=== PATIENT | female | born 1980 | race Caucasian/White ===

== ENCOUNTER 2017-08-22 07:28 | Inpatient (IN) | payer OTHER ==
[2017-08-22 07:54] VITALS: BMI 29.8
[2017-08-22] MEDS ORDERED: LIDOCAINE VISCOUS 2% ORAL/TOP 20 ML UNIT-DOSE CUP MM ONE (08:15)
[2017-08-22] MEDS ORDERED: SODIUM CHLORIDE 1,000 ML IV STA (08:15)
[2017-08-22] MEDS ORDERED: ONDANSETRON 4 MG/2 ML VIAL IVPUSH ONE (08:15)
[2017-08-22] MEDS ORDERED: MAG HYDROX/AL HYDROX/SIMETH 30 ML UNIT-DOSE CUP PO ONE (08:15)
--- NOTE | 2017-08-22 08:15 | PDOC ---
History of Present Illness - General Chief Complaint: Pain, Acute Stated Complaint: ABDOMINAL PAIN Time Seen by Provider: 08/22/17 08:06 - History of Present Illness Initial Comments: 08/22/17 08:20 The patient is a 37 year old female with a history of anemia who presents for evaluation of epigastric abdominal pain. The patient reports the onset of burning epigastric abdominal pain yesterday evening after eating spicy food. She states that she had an episode of vomiting during the night prompting her presentation to the ED today. She states that she has not had similar symptoms in the past and that her pain has improved through out the night. She denies fevers, chills, SOB, chest pain, or changes with urination or bowel movements. Past History - Past Medical History Allergies/Adverse Reactions: Allergies Allergy/AdvReac Type Severity Reaction Status Date / Time No Known Allergies Allergy Verified 08/22/17 07:51 Home Medications: Ambulatory Orders NK [No Known Home Medication] 08/22/17 Anemia: Yes Asthma: No Cancer: No Cardiac Disorders: No COPD: No Diabetes: No HTN: No Seizures: No Thyroid Disease: No - Suicide/Smoking/Psychosocial Hx Smoking History: Never smoked Have you smoked in the past 12 months: No Hx Alcohol Use: No Drug/Substance Use Hx: No Hx Substance Use Treatment: No Review of Systems - Review of Systems Comments:: 08/22/17 08:25 Constitutional: No fevers, chills, fatigue, malaise HEENT: No Rhinorrhea, nasal congestion, visual changes Cardiovascular: No chest pain, syncope, palpitations, lightheadedness Respiratory: No Cough, SOB, Hemoptysis, Gastrointestinal: Nausea, vomiting, epigastric abdominal pain. No Constipation , Diarrhea, Melena Genitourinary: No Dysuria, Frequency, Urgency, Hesitancy, Hematuria, Flank pain Musculoskeletal: No Myalgia, arthralgia Skin: No rashes, itching, bruising, pallor Neurologic: No Headache, Dizziness, Numbness, Weakness, or Tingling Psychiatric: No Hallucinations. No SI or HI *Physical Exam - Vital Signs Last Vital Signs Temp Pulse Resp BP Pulse Ox 98.5 F 110 H 20 127/74 99 08/22/17 07:51 08/22/17 07:51 08/22/17 07:51 08/22/17 07:51 08/22/17 07:51 - Physical Exam Comments: 08/22/17 08:29 General Appearance: Nourished. No Apparent Distress HEENT: EOMI, RANCHO. No Pharyngeal Erythema, Tonsillar Exudate, Tonsillar Erythema Neck: No Cervical Lymphadenopathy Respiratory/Chest: Lungs Clear, Normal Breath Sounds. No Crackles, Rales, Rhonchi, Wheezing Cardiovascular: Regular Rhythm, Regular Rate. No Murmur, Gallops, Rubs Gastrointestinal/Abdominal: Normal Bowel Sounds, Soft. Mild tenderness to palpation with deep palpation in the epigastrium. No Guarding, Rebound, Musculoskeletal: No CVA Tenderness Extremity: Normal Capillary Refill Integumentary: Normal Color, Dry, Warm Neurologic: Fully Oriented, Alert, Normal Mood/Affect, Normal Response, Heart Score/ECG Review #1 ECG reviewed & interpreted by me at: 09:04 (RR' in V2) General ECG Interpretation: Sinus Rhythm, Normal Rate, Normal Intervals, No acute ischemic changes ED Treatment Course - LABORATORY CBC & Chemistry Diagram: 08/22/17 08:39 08/22/17 08:39 Medical Decision Making - Medical Decision Making 08/22/17 08:31 The patient is a 37 year old female with a history of anemia who presents for evaluation of epigastric abdominal pain. Differential includes but is not limited to: Gastritis, GERD, Pancreatitis, Cholecystitis, ACS, infectious, metabolic derangement. Given the patient's symptoms worse after spicy food and history, it is likely her symptoms are due to a gastritis. However we will obtain a cbc, cmp, troponin, lipase, ekg and gallbladder US to evaluate for other etiologies. We will treat with iv fluids, pepcid, zofran, maalox, and viscous lidocaine. We will continue to monitor and reassess. 08/22/17 10:14 CBC demonstrates a wbc elevation to 18.2. cmp is unremarkable. troponin, lipase are unremarkable. Gallbladder US demonstrates concerns for possible earlier acute cholecystitis as well as signs of gallstones as read by our radiologist. The patient will require admission for further management of her symptoms and will be treated with zosyn here in the ED. We discussed the case with Dr. Claudio with surgery who has been made aware of the case. We discussed the results and the plan with the patient who voiced understanding and is agreeable with the plan. 08/22/17 10:33 We discussed the case with the hospitalist team who accepted the patient for admission. 08/22/17 10:40 Dr. Claudio with surgery will admit the patient primarily. We have informed the hospitalist team. *DC/Admit/Observation/Transfer Diagnosis at time of Disposition: Cholecystitis - Discharge Dispostion Condition at time of disposition: Stable Admit: Yes - Referrals - Patient Instructions - Post Discharge Activity
[2017-08-22] MEDS ORDERED: LIDOCAINE VISCOUS 2% ORAL/TOP 20 ML UNIT-DOSE CUP ONE (08:35)
[2017-08-22] MEDS ORDERED: MAG HYDROX/AL HYDROX/SIMETH 30 ML UNIT-DOSE CUP ONE (08:35)
[2017-08-22] MEDS ORDERED: ONDANSETRON 4 MG/2 ML VIAL ONE (08:36)
[2017-08-22 09:02] LABS: BASO % 0.4 % (0-2.0); EOS % 0.1 % (0-4.5); HEMATOCRIT 42.6 % (32.4-45.2); HEMOGLOBIN 13.3 GM/dL (10.7-15.3); LYMPH % 5.2 % (8-40); MCH 22.4 pg (25.7-33.7); MCHC 31.3 g/dl (32.0-36.0); MEAN CELL VOLUME 71.4 fl (80-96); MEAN PLT VOLUME 8.8 fl (7.5-11.1); MONO % 3.3 % (3.8-10.2); PLATELET COUNT 272 K/MM3 (134-434); RBC 5.97 M/mm3 (3.60-5.2); RDW 21.3 % (11.6-15.6); WHITE BLOOD COUNT 18.2 K/mm3 (4.0-10.0)
[2017-08-22 09:11] LABS: ADD RBC MORPHOLOGY YES
--- NOTE | 2017-08-22 09:29 | PDOC ---
Attending Attestation - Resident Resident Name: MichelleBasilioShayan - ED Attending Attestation I have performed the following: I have examined & evaluated the patient, The case was reviewed & discussed with the resident, I agree w/resident's findings & plan, Exceptions are as noted - HPI HPI: 08/22/17 09:31 37 year old F pmh anemia p/w epigastric pain since yesterday evening. Stated that the pain worse after eating spicy food. Denies chest pain or shortness of breath. Burning in nature. Denies radiation. 1 episode of NBNB emesis. Denies fevers, chills. - Physicial Exam PE: 08/22/17 09:32 GENERAL: Awake, alert, and fully oriented, in no acute distress. HEAD: No signs of trauma EYES: PERRLA, EOMI, sclera anicteric, conjunctiva clear ENT: Auricles normal inspection, hearing grossly normal, nares patent NECK: Normal ROM, supple ABDOMEN: Mildly TTP RUQ, epigastric, LUQ. Soft. No guarding, no rebound. No masses EXTREMITIES: Normal range of motion, no edema. No clubbing or cyanosis. No cords, erythema, or tenderness NEUROLOGICAL: Cranial nerves II through XII grossly intact. Normal speech, normal gait SKIN: Warm, Dry, normal turgor, no rashes or lesions noted. - Medical Decision Making 08/22/17 09:32 Vital Signs Temp Pulse Resp BP Pulse Ox 98.5 F 110 H 20 127/74 100 08/22/17 07:51 08/22/17 07:51 08/22/17 07:51 08/22/17 07:51 08/22/17 08:10 I suspect the patient likely has GERD/gastritis. However, given age, F, and with mild RUQ pain, will rule out biliary pathology i.e. acute juan f/biliary colic. Labs, UA/Urine preg, RUQ ultrasound. GERD medications. 08/22/17 10:16 CBC, BMP 08/22/17 08:39 08/22/17 08:39 CMP Sodium 135 mmol/L (136-145) L 08/22/17 08:39 Potassium 4.2 mmol/L (3.5-5.1) 08/22/17 08:39 Chloride 98 mmol/L (98-107) 08/22/17 08:39 Carbon Dioxide 25 mmol/L (21-32) 08/22/17 08:39 Anion Gap 12 (8-16) 08/22/17 08:39 BUN 9 mg/dL (7-18) 08/22/17 08:39 Creatinine 0.6 mg/dL (0.55-1.02) 08/22/17 08:39 Creat Clearance w eGFR > 60 (>60) 08/22/17 08:39 Random Glucose 127 mg/dL (74-106) H 08/22/17 08:39 Calcium 9.0 mg/dL (8.5-10.1) 08/22/17 08:39 Total Bilirubin 0.3 mg/dL (0.2-1.0) 08/22/17 08:39 AST 24 U/L (15-37) 08/22/17 08:39 ALT 31 U/L (12-78) 08/22/17 08:39 Alkaline Phosphatase 78 U/L (45-117) 08/22/17 08:39 Creatine Kinase 85 IU/L (26-192) 08/22/17 08:39 Troponin I < 0.02 ng/ml (0.00-0.05) 08/22/17 08:39 Total Protein 8.5 g/dl (6.4-8.2) H 08/22/17 08:39 Albumin 4.0 g/dl (3.4-5.0) 08/22/17 08:39 Lipase 122 U/L (73-393) 08/22/17 08:39 Over distended gallbladder. ?acute cholecystitis? Given the WBC 18.2 with ultrasound findings, will treat empirically as acute cholecystitis. IV antibiotics, surgical consult, and admission. Heart Score/ECG Review #1 ECG reviewed & interpreted by me at: 09:00 08/22/17 09:35 NSR 92, no std/matheus, TWI III, RSR' V2, no std/matheus, QTC 464 msec
[2017-08-22 09:32] LABS: ANION GAP 12 (8-16); BILIRUBIN,TOTAL 0.3 mg/dL (0.2-1.0); BLOOD UREA NITROGEN 9 mg/dL (7-18); CHLORIDE 98 mmol/L (98-107); CO2 25 mmol/L (21-32); CREATININE 0.6 mg/dL (0.55-1.02); GLUCOSE,RANDOM 127 mg/dL (74-106); LIPASE 122 U/L (73-393); POTASSIUM 4.2 mmol/L (3.5-5.1); SGOT/AST 24 U/L (15-37); SGPT/ALT 31 U/L (12-78); SODIUM 135 mmol/L (136-145); TOT PROT 8.5 g/dl (6.4-8.2)
[2017-08-22 09:35] LABS: ALK PHOS 78 U/L (45-117)
[2017-08-22] MEDS ORDERED: FAMOTIDINE 20 MG/50 ML IVPB 20 MG/50 ML MG IVPB ONE ×2 (10:00→11:31)
[2017-08-22] MEDS ORDERED: PIPERACILLIN/TAZOB 3.375 GM 50 ML IVPB ONE (10:10)
--- NOTE | 2017-08-22 10:22 | CONSULT ---
Consult Consult Specialty:: general surgery Reason for Consultation:: abdominal pain - History of Present Illness Chief Complaint: abdominal pain History of Present Illness: 37 yo female PMH iron deficiency anemia, overweight presents to the emergency department reporting epigastric pain since yesterday evening. She says that the pain was close related to eating spicy food. She has had smilar episodes of achy discomfort after meals for 2 months. She denies fever and chill, no yellowing of the skin or eyes. She notes is upper abdominal burning in nature. She had a single episode of NBNB emesis. no history of gastritis or PUD disease. no previous endoscopy. Ultrasoud showed some cholelithiasis. WBC is 18.2. We were asked to assess. - History Source History Provided By: Patient, Medical Record Limitations to Obtaining History: No Limitations - Past Medical History Heme/Onc: Yes: Anemia - Alcohol/Substance Use Hx Alcohol Use: No - Smoking History Smoking history: Never smoked Have you smoked in the past 12 months: No - Social History Usual Living Arrangement: With Child Place of : Other History of Recent Travel: No Home Medications - Allergies Allergies/Adverse Reactions: Allergies Allergy/AdvReac Type Severity Reaction Status Date / Time No Known Allergies Allergy Verified 08/22/17 07:51 - Home Medications Home Medications: Ambulatory Orders NK [No Known Home Medication] 08/22/17 Review of Systems - Review of Systems Constitutional: denies: Chills, Fever Eyes: denies: Blurred Vision, Recent Change in Vision HENT: denies: Difficult Swallowing, Throat Pain Neck: denies: Pain on Movement, Tenderness Cardiovascular: denies: Chest Pain, Palpitations Respiratory: denies: Cough, SOB Gastrointestinal: reports: Abdominal Pain, Indigestion Musculoskeletal: denies: Muscle Pain, Muscle Weakness Integumentary: denies: Pruritis, Rash Neurological: denies: Confusion, Seizure, Syncope Endocrine: denies: Unexplained Weight Gain, Unexplained Weight Loss Hematology/Lymphatic: denies: Easily Bruised, Excessive Bleeding Psychiatric: denies: Anxiety, Depression Physical Exam Vital Signs: Vital Signs Temperature 98.5 F 08/22/17 07:51 Pulse Rate 110 H 08/22/17 07:51 Respiratory Rate 20 08/22/17 07:51 Blood Pressure 127/74 08/22/17 07:51 O2 Sat by Pulse Oximetry (%) 100 08/22/17 08:10 Vital Signs Period Temp Pulse Resp BP Sys/Mcwilliams Pulse Ox Last 24 Hr 98.5 F 110 20 127/74 99-100 Constitutional: Yes: Well Nourished, No Distress, Calm Eyes: Yes: Conjunctiva Clear, EOM Intact HENT: Yes: Atraumatic, Normocephalic Neck: Yes: Supple, Trachea Midline Cardiovascular: Yes: Regular Rate and Rhythm, S1 Respiratory: Yes: Regular, CTA Bilaterally Gastrointestinal: Yes: Normal Bowel Sounds, Soft, Tenderness (epigastic and RUQ , - murphys), Tenderness, Rebound ...Rectal Exam: Yes: Deferred Renal/: No: CVA Tenderness - Left, CVA Tenderness - Right Extremities: No: Cool, Cyanosis Edema: Yes Integumentary: No: Jaundice, Rash Neurological: Yes: Alert, Oriented Psychiatric: Yes: Alert, Oriented Labs: CBC, BMP 08/22/17 08:39 08/22/17 08:39 Imaging - Results Ultrasound: Report Reviewed, Image Reviewed Problem List - Problems (1) Cholecystitis Assessment/Plan: 37yo female with early acute cholecystitis Admit to surgery NPO and IVF hydration IV antibiotics per ID Repeat labs in AM Plan for Cholecystectomy 08/23 Discussed with patient risks, benefits and alternatives of laparoscopic possible open cholecystectomy, including but not limited to bleeding, infection , injury to adjacent structures, leak or injury, intraabdominal abscess, need for further procedures, ; alternatives include antibiotics, delayed or no surgery - risks of this include failure of nonoperative therapy, perforation, sepsis, recurrence, .Patient desires to proceed with operation - will take to OR for above. Informed consent signed for same. Code(s): K81.9 - CHOLECYSTITIS, UNSPECIFIED (2) History of biliary colic Code(s): Z87.19 - PERSONAL HISTORY OF OTHER DISEASES OF THE DIGESTIVE SYSTEM (3) Leukocytosis Code(s): D72.829 - ELEVATED WHITE BLOOD CELL COUNT, UNSPECIFIED (4) Recurrent biliary colic Code(s): K80.50 - CALCULUS OF BILE DUCT W/O CHOLANGITIS OR CHOLECYST W/O OBST
--- NOTE | 2017-08-22 10:23 | HP ---
CHIEF COMPLAINT: PCP: HISTORY OF PRESENT ILLNESS: ER course was notable for: (1) (2) (3) Recent Travel: PAST MEDICAL HISTORY: PAST SURGICAL HISTORY: Social History: Smoking: Alcohol: Drugs: Family History: Allergies No Known Allergies Allergy (Verified 08/22/17 07:51) HOME MEDICATIONS: Home Medications Medication Instructions Recorded NK [No Known Home Medication] 08/22/17 REVIEW OF SYSTEMS CONSTITUTIONAL: Absent: fever, chills, diaphoresis, generalized weakness, malaise, loss of appetite, weight change HEENT: Absent: rhinorrhea, nasal congestion, throat pain, throat swelling, difficulty swallowing, mouth swelling, ear pain, eye pain, visual changes CARDIOVASCULAR: Absent: chest pain, syncope, palpitations, irregular heart rate, lightheadedness , peripheral edema RESPIRATORY: Absent: cough, shortness of breath, dyspnea with exertion, orthopnea, wheezing, stridor, hemoptysis GASTROINTESTINAL: Absent: abdominal pain, abdominal distension, nausea, vomiting, diarrhea, constipation, melena, hematochezia GENITOURINARY: Absent: dysuria, frequency, urgency, hesitancy, hematuria, flank pain, genital pain MUSCULOSKELETAL: Absent: myalgia, arthralgia, joint swelling, back pain, neck pain SKIN: Absent: rash, itching, pallor HEMATOLOGIC/IMMUNOLOGIC: Absent: easy bleeding, easy bruising, lymphadenopathy, frequent infections ENDOCRINE: Absent: unexplained weight gain, unexplained weight loss, heat intolerance, cold intolerance NEUROLOGIC: Absent: headache, focal weakness or paresthesias, dizziness, unsteady gait, seizure, mental status changes, bladder or bowel incontinence PSYCHIATRIC: Absent: anxiety, depression, suicidal or homicidal ideation, hallucinations. PHYSICAL EXAMINATION Vital Signs - 24 hr 08/22/17 08/22/17 07:51 08:10 Temperature 98.5 F Pulse Rate 110 H Respiratory 20 Rate Blood Pressure 127/74 O2 Sat by Pulse 99 100 Oximetry (%) GENERAL: Awake, alert, and fully oriented, in no acute distress. HEAD: Normal with no signs of trauma. EYES: Pupils equal, round and reactive to light, extraocular movements intact, sclera anicteric, conjunctiva clear. No lid lag. EARS, NOSE, THROAT: Ears normal, nares patent, oropharynx clear without exudates. Moist mucous membranes. NECK: Normal range of motion, supple without lymphadenopathy, JVD, or masses. LUNGS: Breath sounds equal, clear to auscultation bilaterally. No wheezes, and no crackles. No accessory muscle use. HEART: Regular rate and rhythm, normal S1 and S2 without murmur, rub or gallop. ABDOMEN: Soft, nontender, not distended, normoactive bowel sounds, no guarding, no rebound, no masses. No hepatomegaly or splenomegaly. MUSCULOSKELETAL: Normal range of motion at all joints. No bony deformities or tenderness. No CVA tenderness. UPPER EXTREMITIES: 2+ pulses, warm, well-perfused. No cyanosis. No clubbing. No peripheral edema. LOWER EXTREMITIES: 2+ pulses, warm, well-perfused. No calf tenderness. No peripheral edema. NEUROLOGICAL: Cranial nerves II-XII intact. Normal speech. Normal gait. PSYCHIATRIC: Cooperative. Good eye contact. Appropriate mood and affect. SKIN: Warm, dry, normal turgor, no rashes or lesions noted, normal capillary refill. Laboratory Results - last 24 hr 08/22/17 08/22/17 08/22/17 08:39 08:39 08:39 WBC 18.2 H D RBC 5.97 H D Hgb 13.3 Hct 42.6 MCV 71.4 L MCH 22.4 L MCHC 31.3 L RDW 21.3 H D Plt Count 272 D MPV 8.8 Neutrophils % 91.0 H Lymphocytes % 5.2 L D Monocytes % 3.3 L Eosinophils % 0.1 D Basophils % 0.4 Sodium 135 L Potassium 4.2 Chloride 98 Carbon Dioxide 25 Anion Gap 12 BUN 9 Creatinine 0.6 Creat Clearance w eGFR > 60 Random Glucose 127 H Calcium 9.0 Total Bilirubin 0.3 AST 24 ALT 31 Alkaline Phosphatase 78 Creatine Kinase 85 Cancelled Troponin I < 0.02 Cancelled Total Protein 8.5 H Albumin 4.0 Lipase 122 ASSESSMENT/PLAN:
[2017-08-22] MEDS ORDERED: MORPHINE SULFATE 10 MG/1 ML *VIAL IVPUSH PRN (10:40)
[2017-08-22] MEDS ORDERED: ACETAMINOPHEN 325 MG TABLET (FP) PO PRN (10:40)
[2017-08-22] MEDS ORDERED: ONDANSETRON 4 MG/2 ML VIAL IVPUSH PRN (10:40)
[2017-08-22] MEDS ORDERED: PANTOPRAZOLE 40 MG TABLET (FP) PO SCH (10:45)
[2017-08-22] MEDS ORDERED: LACTATED RINGERS SOLUTION 1,000 ML IV SCH (10:45)
[2017-08-22] MEDS ORDERED: cefOXitin SODIUM 2 GM VIAL (RESTRICTED TO ID) IVPB ONE (10:48)
--- NOTE | 2017-08-22 10:55 | HP ---
Admitting History and Physical - Admission Chief Complaint: abdominal pain History of Present Illness: 37 yo female PMH iron deficiency anemia, overweight presents to the emergency department reporting epigastric pain since yesterday evening. She says that the pain was close related to eating spicy food. She has had smilar episodes of achy discomfort after meals for 2 months. She denies fever and chill, no yellowing of the skin or eyes. She notes is upper abdominal burning in nature. She had a single episode of NBNB emesis. no history of gastritis or PUD disease. no previous endoscopy. Ultrasoud showed some cholelithiasis. WBC is 18.2. We were asked to assess. History Source: Patient, Medical Record Limitations to Obtaining History: No Limitations - Past Medical History Heme/Onc: Yes: Anemia - Smoking History Smoking history: Never smoked Have you smoked in the past 12 months: No - Alcohol/Substance Use Hx Alcohol Use: No - Social History Usual Living Arrangement: Yes: With Spouse History of Recent Travel: No Home Medications - Allergies Allergies/Adverse Reactions: Allergies Allergy/AdvReac Type Severity Reaction Status Date / Time No Known Allergies Allergy Verified 08/22/17 07:51 - Home Medications Home Medications: Ambulatory Orders NK [No Known Home Medication] 08/22/17 Review of Systems - Review of Systems Constitutional: denies: Chills, Fever Eyes: denies: Blind Spots, Recent Change in Vision HENT: denies: Difficult Swallowing, Throat Pain Neck: denies: Decreased ROM, Tenderness Cardiovascular: denies: Chest Pain, Palpitations Respiratory: denies: Cough, SOB Gastrointestinal: reports: Abdominal Pain, Vomiting (X1 episode) Genitourinary: denies: Discharge, Dysuria Breasts: reports: No Symptoms Reported. denies: Pain Musculoskeletal: denies: Muscle Pain, Muscle Weakness Integumentary: denies: Bruising, Rash Neurological: denies: Change in LOC, Seizure, Syncope Endocrine: denies: Unexplained Weight Gain, Unexplained Weight Loss Hematology/Lymphatic: denies: Easily Bruised, Excessive Bleeding Psychiatric: denies: Anxiety, Depression Physical Examination Vital Signs: Vital Signs Temperature 98.5 F 08/22/17 07:51 Pulse Rate 110 H 08/22/17 07:51 Respiratory Rate 20 08/22/17 07:51 Blood Pressure 127/74 08/22/17 07:51 O2 Sat by Pulse Oximetry (%) 100 02/18/18 08:10 Vital Signs Period Temp Pulse Resp BP Sys/Mcwilliams Pulse Ox Last 24 Hr 98.5 F 110 20 127/74 99-100 Constitutional: Yes: Well Nourished, No Distress, Calm Eyes: Yes: Conjunctiva Clear, EOM Intact HENT: Yes: Atraumatic, Normocephalic Neck: Yes: Supple, Trachea Midline Cardiovascular: Yes: Regular Rate and Rhythm, S1, S2. No: Murmur Respiratory: Yes: Regular, CTA Bilaterally Gastrointestinal: Yes: Normal Bowel Sounds, Soft, Tenderness (- murphys sign, no scars, minimal in RUQ at livers margin << epigastric) ...Rectal Exam: Yes: Deferred Renal/: No: CVA Tenderness - Left, CVA Tenderness - Right Musculoskeletal: No: Muscle Pain, Muscle Weakness Extremities: No: Cool, Cyanosis Edema: No Peripheral Pulses WNL: Yes Peripheral Pulses: Left Radial: 2+, Right Radial: 2+, Left Doralis Pedis: 2+, Right Dorsalis Pedis: 2+, Left Femoral: 2+, Right Femoral: 2+ Integumentary: No: Jaundice, Rash Neurological: Yes: Alert, Oriented Psychiatric: Yes: Alert, Oriented Labs: CBC, BMP 08/22/17 08:39 08/22/17 08:39 Imaging - Results Ultrasound: Report Reviewed, Image Reviewed (cholelithiasis) Problem List - Problems (1) Cholecystitis Assessment/Plan: 37yo female with early acute cholecystitis Admit to surgery NPO and IVF hydration IV antibiotics per ID Repeat labs in AM Plan for Cholecystectomy 08/23 Discussed with patient risks, benefits and alternatives of laparoscopic possible open cholecystectomy, including but not limited to bleeding, infection , injury to adjacent structures, leak or injury, intraabdominal abscess, need for further procedures, ; alternatives include antibiotics, delayed or no surgery - risks of this include failure of nonoperative therapy, perforation, sepsis, recurrence, .Patient desires to proceed with operation - will take to OR for above. Informed consent signed for same. Code(s): K81.9 - CHOLECYSTITIS, UNSPECIFIED (2) Recurrent biliary colic Code(s): K80.50 - CALCULUS OF BILE DUCT W/O CHOLANGITIS OR CHOLECYST W/O OBST (3) History of biliary colic Code(s): Z87.19 - PERSONAL HISTORY OF OTHER DISEASES OF THE DIGESTIVE SYSTEM (4) Leukocytosis Code(s): D72.829 - ELEVATED WHITE BLOOD CELL COUNT, UNSPECIFIED
[2017-08-22 11:04] LABS: ANISOCYTOSIS 2+
--- NOTE | 2017-08-22 11:06 | EKG ---
Test Reason : Blood Pressure : / mmHG Vent. Rate : 092 BPM Atrial Rate : 092 BPM P-R Int : 154 ms QRS Dur : 086 ms QT Int : 376 ms P-R-T Axes : 026 009 019 degrees QTc Int : 464 ms NORMAL SINUS RHYTHM POSSIBLE LEFT ATRIAL ENLARGEMENT POSSIBLE INFERIOR INFARCT , AGE UNDETERMINED CANNOT RULE OUT ANTERIOR INFARCT , AGE UNDETERMINED ABNORMAL ECG NO PREVIOUS ECGS AVAILABLE Confirmed by SANJEEV SOLIMAN MD ([id number]) on 08/22/2017 11:06:20 AM Referred By: Confirmed By:SANJEEV SOLIMAN MD
[2017-08-22] MEDS ORDERED: PANTOPRAZOLE SODIUM 40 MG VIAL ONE (11:31)
[2017-08-22] MEDS ORDERED: CEFOXITIN SODIUM 1 GM PUSH 1 GM/10 ML DISP.SYRIN IVPUSH ONE (12:00)
--- NOTE | 2017-08-22 16:26 | CON.ID ---
Consult - History of Present Illness History of Present Illness: Asked to evaluate this 37 y.o. female with PMH of iron-deficiency anemia presenting with c/o persistent epigastric pain (6/10 intensity) that began yesterday after a meal. She states she vomited after eating and had 2 more episodes afterwards. She presented to the ER this morning. States she had an episode of chills but no fevers. She has had episodes of burning epigastric pain in the past after eating spicy meals that would resolve spontaneously. She denies any other specific complaints. In the ER she was noted to have wbc of 18K and abdominal US findings of cholelithiasis and mildly enlarged GB. Currently pt denies any pain. - Past Medical History Heme/Onc: Yes: Anemia - Past Surgical History Past Surgical History: Yes: None - Alcohol/Substance Use Hx Alcohol Use: No - Smoking History Smoking history: Never smoked Have you smoked in the past 12 months: No - Social History Usual Living Arrangement: With Child History of Recent Travel: No Home Medications - Allergies Allergies/Adverse Reactions: Allergies Allergy/AdvReac Type Severity Reaction Status Date / Time No Known Allergies Allergy Verified 08/22/17 07:51 - Home Medications Home Medications: Ambulatory Orders NK [No Known Home Medication] 08/22/17 Review of Systems - Review of Systems Constitutional: reports: No Symptoms Eyes: reports: No Symptoms HENT: reports: No Symptoms Neck: reports: No Symptoms Cardiovascular: reports: No Symptoms Respiratory: reports: No Symptoms Gastrointestinal: reports: Abdominal Pain (mild epigastric) Genitourinary: reports: No Symptoms Breasts: reports: No Symptoms Reported Musculoskeletal: reports: No Symptoms Integumentary: reports: No Symptoms Neurological: reports: No Symptoms Endocrine: reports: No Symptoms Hematology/Lymphatic: reports: No Symptoms Psychiatric: reports: No Symptoms Pain Intensity: 2 Physical Exam Vital Signs: Vital Signs Temperature 99.1 F 08/22/17 11:23 Pulse Rate 80 08/22/17 11:23 Respiratory Rate 20 08/22/17 11:23 Blood Pressure 117/74 08/22/17 11:23 O2 Sat by Pulse Oximetry (%) 100 08/22/17 11:23 Constitutional: Yes: No Distress, Calm Eyes: Yes: WNL HENT: Yes: WNL Neck: Yes: WNL Cardiovascular: Yes: Tachycardia Respiratory: Yes: CTA Bilaterally Gastrointestinal: Yes: Normal Bowel Sounds, Soft, Tenderness (mild epigastric with deep palpation, (-) ramirez's sign) ...Rectal Exam: Yes: Deferred Renal/: Yes: WNL Musculoskeletal: Yes: WNL Extremities: Yes: WNL Edema: No Integumentary: Yes: WNL Neurological: Yes: Alert, Oriented ...Motor Strength: WNL Psychiatric: Yes: WNL Labs: CBC, BMP 08/22/17 08:39 08/22/17 08:39 Imaging - Results Ultrasound: Report Reviewed (cholelithiasis, distended GB) Problem List - Problems (1) Cholecystitis Code(s): K81.9 - CHOLECYSTITIS, UNSPECIFIED (2) Leukocytosis Code(s): D72.829 - ELEVATED WHITE BLOOD CELL COUNT, UNSPECIFIED (3) Recurrent biliary colic Code(s): K80.50 - CALCULUS OF BILE DUCT W/O CHOLANGITIS OR CHOLECYST W/O OBST Assessment/Plan 37 y.o. female with PMH of iron-deficiency anemia presenting with c/o epigastric pain, vomiting x 3, and chills since yesterday Acute cholecystitis - started on Zosyn IV empirically - follow up blood cultures - monitor wbc, vitals - scheduled for cholecystectomy tomorrow - vitals currently stable
[2017-08-22] MEDS ORDERED: PIPERACIL/TAZOB 3.375 GM 3.375 GM/50 ML PREMIX IVPB SCH (18:00)
[2017-08-22] MEDS ORDERED: PIPERACILLIN/TAZOB 3.375 GM 3.375 GM/50 ML BAG IVPB ONE (18:06)
[2017-08-22] MEDS: PIPERACILLIN/TAZOB 3.375 GM 3.375 GM in DEXTROSE 5%-WATER - 50 ML IVPB SCH (18:08)
[2017-08-23] MEDS ORDERED: PIPERACILLIN/TAZOB 3.375 GM 3.375 GM/50 ML BAG IVPB ONE (02:51)
[2017-08-23] MEDS: PIPERACILLIN/TAZOB 3.375 GM 3.375 GM in DEXTROSE 5%-WATER - 50 ML IVPB SCH (02:59)
[2017-08-23 08:01] LABS: BASO % 0.4 % (0-2.0); EOS % 1.4 % (0-4.5); HEMOGLOBIN 13.2 GM/dL (10.7-15.3); LYMPH % 18.6 % (8-40); MCH 22.8 pg (25.7-33.7); MCHC 31.4 g/dl (32.0-36.0); MEAN CELL VOLUME 72.6 fl (80-96); MEAN PLT VOLUME 8.4 fl (7.5-11.1); MONO % 6.2 % (3.8-10.2); NEUT % 73.4 % (42.8-82.8); PLATELET COUNT 253 K/MM3 (134-434); RBC 5.79 M/mm3 (3.60-5.2); RDW 21.7 % (11.6-15.6); WHITE BLOOD COUNT 10.3 K/mm3 (4.0-10.0)
[2017-08-23 08:14] LABS: INR 1.11 (0.82-1.09); PROTHROMBIN TIME (PATIENT) 12.5 SEC (9.98-11.88)
[2017-08-23] MEDS ORDERED: MIDAZOLAM HCL 2 MG/2 ML SINGLE DOSE VIAL ONE (10:11)
[2017-08-23] MEDS ORDERED: ROCURONIUM BROMIDE 50 MG/5 ML VIAL ONE (10:15)
[2017-08-23] MEDS ORDERED: PROPOFOL 20 ML ONE (10:15)
[2017-08-23] MEDS ORDERED: BUPIVACAINE HCL/PF 0.5% (5MG/ML) 10 ML VIAL ONE (10:53)
[2017-08-23] MEDS ORDERED: GLYCOPYRROLATE 0.2 MG/1 ML VIAL ONE (11:14)
[2017-08-23] MEDS ORDERED: LIDOCAINE HCL/PF 2% SDV 5ML VIAL ONE (11:14)
[2017-08-23] MEDS ORDERED: KETOROLAC TROMETHAMINE 30 MG/1 ML VIAL ONE (11:14)
[2017-08-23] MEDS ORDERED: LIDOCAINE HCL 2% JELLY (5 ML/TUBE) ONE (11:14)
[2017-08-23] MEDS ORDERED: DEXAMETHASONE SOD PHOSPHATE 4 MG/1 ML VIAL ONE (11:14)
[2017-08-23] MEDS ORDERED: NEOSTIGMINE METHYLSULFATE 0.5 MG/ML - 10 ML MDV ONE (11:16)
[2017-08-23] MEDS ORDERED: BUPIVACAINE HCL/PF 0.5% (5MG/ML) 10 ML VIAL IJ ONE (11:34)
--- NOTE | 2017-08-23 11:38 | OP ---
Operative Note - Note: Operative Date: 08/23/17 Pre-Operative Diagnosis: early acute cholecystitis, cholelithiasis Operation: laparoscopic cholecystectomy Findings: distended gallbladder may stones, critical view as identified, counts were correct Post-Operative Diagnosis: Same as Pre-op Surgeon: Jorge Claudio Continuous Churn Buttermaker: Saad Irvin Anesthesiologist/DYNAMO REPAIRER: Bhavna Paez MD Anesthesia: General, Local (0.5% MARCAINE 10ML) Specimens Removed: GALLBLADDER AND STONES Estimated Blood Loss (mls): 10 Fluid Volume Replaced (mls): 1,000 Operative Report Dictated: Yes
[2017-08-23] MEDS ORDERED: MORPHINE SULFATE 10 MG/1 ML *VIAL IVPUSH PRN ×2 (11:45→12:11)
[2017-08-23] MEDS ORDERED: ONDANSETRON 4 MG TABLET PO PRN (11:48)
[2017-08-23] MEDS ORDERED: IBUPROFEN 600 MG TABLET (FP) PO PRN (11:49)
[2017-08-23] MEDS ORDERED: ONDANSETRON 4 MG/2 ML VIAL IVPUSH PRN (11:54)
[2017-08-23] MEDS ORDERED: LACTATED RINGERS SOLUTION 1,000 ML IV SCH (12:00)
[2017-08-23] MEDS ORDERED: PANTOPRAZOLE SODIUM 40 MG VIAL IVPUSH SCH (12:00)
[2017-08-23] MEDS ORDERED: FAMOTIDINE IVPB ONE (12:25)
[2017-08-23] MEDS ORDERED: FAMOTIDINE 20 MG PREMIXED IVPB IVPB ONE (13:00)
[2017-08-23] MEDS ORDERED: PIPERACILLIN/TAZOB 3.375 GM 3.375 GM in DEXTROSE 5%-WATER - 50 ML IVPB SCH (13:00)
--- NOTE | 2017-08-23 13:29 | SURG ---
Surgery Machining Technician Note Machining Technician: Saad Irvin PA-C Date of Service: 08/23/17 Diagnosis: acute on chronic cholecystitis, cholelithiasis Procedure: Laparoscopic cholecystectomy I was present for the entirety of the operative procedure. For further detail, please refer to operative report. Visit type - Case Type Case Type: Scheduled Admission - New patient This patient is new to me today: Yes Date on this admission: 08/23/17
[2017-08-23] MEDS ORDERED: KETOROLAC TROMETHAMINE 30 MG/1 ML VIAL IVPUSH ONE (13:30)
[2017-08-23] MEDS ORDERED: ACETAMINOPHEN 1000 MG/100 ML VIAL (NON FORMULARY) IVPB ONE (14:28)
[2017-08-23] MEDS ORDERED: ACETAMINOPHEN INJECTION 100 ML IVPB ONE (14:29)
[2017-08-23 15:14] VITALS: TEMP 99.8
--- NOTE | 2017-08-23 15:22 | DS ---
Physical Examination Vital Signs: Vital Signs Temperature 99.8 F H 08/23/17 14:40 Pulse Rate 96 H 08/23/17 15:05 Respiratory Rate 20 08/23/17 15:05 Blood Pressure 137/84 08/23/17 15:05 O2 Sat by Pulse Oximetry (%) 99 08/23/17 14:40 Vital Signs Period Temp Pulse Resp BP Sys/Mcwilliams Pulse Ox Last 24 Hr 98.9 F-99.8 F 79-104 16-20 115-141/62-97 94-100 Constitutional: Yes: Well Nourished, No Distress, Calm Eyes: Yes: Conjunctiva Clear, EOM Intact HENT: Yes: Atraumatic, Normocephalic Neck: Yes: Supple, Trachea Midline Cardiovascular: Yes: Regular Rate and Rhythm, S1, S2. No: Murmur Respiratory: Yes: Regular, CTA Bilaterally Gastrointestinal: Yes: Normal Bowel Sounds, Soft, Tenderness (perincisonal) ...Rectal Exam: Yes: Deferred Renal/: No: CVA Tenderness - Left, CVA Tenderness - Right Extremities: No: Cool, Cyanosis Peripheral Pulses WNL: Yes Wound/Incision: Yes: Clean/Dry, Well Approximated Neurological: Yes: Alert, Oriented Psychiatric: Yes: Alert, Oriented Labs: CBC, BMP 08/23/17 06:00 08/22/17 08:39 Discharge Summary Reason For Visit: CHOLECYSTITIS Current Active Problems Cholecystitis (Acute) History of biliary colic (Acute) Leukocytosis (Acute) Recurrent biliary colic (Acute) Procedures: Principal: early acute cholecystitis Other Procedures: laparoscopic cholecystectomy Hospital Course: 37yo female presented with right upper quadrant pain. Sonogram revealed a distended gallbladder with many stones. She was started on empiric antibiotics and hydrated intravenously. She was taken the following morning for an uneventful laparoscopic cholecystectomy. She voided, tolerated a diet, and pain was adequately controlled. she was discharged with a follow-up plan and oral antibiotics. Condition: Stable - Instructions Diet, Activity, Other Instructions: Postoperative instructions: You had a laparoscopic cholecystectomy on 08/23/[address] Jorge Claudio of [facility]. Activity: Resume your usual activities gradually, but no heavy exertion or lifting more than 10-15 pounds for 1 month. Remove dressings 48 hours after surgery; sticky tapes underneath will fall off by themselves. You may shower daily starting then, just pat the incision areas dry. Eat lightly at first, but advance to your usual diet as tolerated. Pain: For pain, you may use and alternate Tylenol (acetaminophen) and/or ibuprofen every 6 hours each as needed; this means that you can take one OR the other at 3-hour intervals. If you are prescribed a Tylenol/narcotic combination for severe pain, use it instead of plain Tylenol as needed and switch back when your pain starts decreasing. Do not take more than 4000mg of acetaminophen in a day. Take medications as prescribed or indicated on the labeling. Follow-up: Call Dr. Claudio' office at [phone] to make your postop appointment (Wednesday ~2 weeks after surgery). Clinic is held in the [facility] on the first floor of [facility]. Call the office if you have: * increasing pain not responsive to pain medication * fever of 101F or higher * vomiting * unusual or increasing bleeding or drainage from wounds * increasing redness or swelling at wound sites * inability to urinate Also, see your primary medical doctor within 1-2 weeks. Referrals: Carmelita Munson MD [Primary Care Provider] - Disposition: HOME - Home Medications Comprehensive Discharge Medication List: Ambulatory Orders Amox-Tr/K Cl [Augmentin - 875Mg Tablet] 1 tab PO BID 10 Days #20 tablet
[2017-08-23] MEDS ORDERED: PIPERACILLIN/TAZOB 3.375 GM 3.375 GM in DEXTROSE 5%-WATER - 50 ML IVPB ONE (16:15)
[2017-08-23] MEDS ORDERED: PIPERACILLIN/TAZOB 3.375 GM/50 ML PRE-DOCKED IVPB ONE (17:30)
[2017-08-23 18:05] VITALS: BP 129/76; PULSE 86
[2017-08-23] MEDS ORDERED: FAMOTIDINE IV 20 MG/12 ML VIAL IVPUSH SCH (22:00)
--- NOTE | 2017-08-24 10:21 | PN ---
Progress Note, Physician History of Present Illness: patient doing well post surgery no complaints feels better - Objective Vital Signs: Vital Signs Temperature 99.8 F H 08/23/17 14:40 Pulse Rate 86 08/23/17 18:00 Respiratory Rate 16 08/23/17 18:00 Blood Pressure 129/76 08/23/17 18:00 O2 Sat by Pulse Oximetry (%) 96 08/23/17 15:05 Constitutional: Yes: No Distress, Calm Respiratory: Yes: Regular, CTA Bilaterally Gastrointestinal: Yes: Soft Musculoskeletal: Yes: WNL Extremities: Yes: WNL Wound/Incision: Yes: Clean/Dry Neurological: Yes: Alert, Oriented Psychiatric: Yes: Alert Labs: CBC, BMP 08/23/17 06:00 08/22/17 08:39 INR, PTT INR 1.11 (0.82-1.09) 08/23/17 06:00 Assessment/Plan Problem List - Problems (1) Cholecystitis Code(s): K81.9 - CHOLECYSTITIS, UNSPECIFIED (2) Leukocytosis Code(s): D72.829 - ELEVATED WHITE BLOOD CELL COUNT, UNSPECIFIED (3) Recurrent biliary colic Code(s): K80.50 - CALCULUS OF BILE DUCT W/O CHOLANGITIS OR CHOLECYST W/O OBST plan continue abx once patient stable can switch to oral
--- NOTE | 2017-08-24 18:21 | OP ---
DATE OF OPERATION: DATE OF DICTATION: 08/24/2017 ATTENDING SURGEON: Jorge Claudio M.D. CONTROLLER INSTRUCTOR: Delma Kendrick ANESTHESIOLOGIST: Bhavna Paez M.D. PREOPERATIVE DIAGNOSIS: Acute cholecystitis. POSTOPERATIVE DIAGNOSIS: Acute cholecystitis. PROCEDURE: Laparoscopic cholecystectomy. FINDINGS: Distended gallbladder with multiple stones and some gallbladder wall thickening and edema. SPECIMEN: Gallbladder with stones. INDICATION: The patient is a 29-year-old female presenting a history of biliary colic. Previous admission to hospital. Presented with 1-day right upper quadrant pain. Ultrasound showed a distended gallbladder with stones, some gallbladder wall thickening. She had a slight elevation in our white count, which resolved by the next morning. She was counseled regarding the need for laparoscopic appendectomy. She signed informed consent after being explained the risks, benefits, and alternatives including bleeding, infection, scar, damage to common bile duct, leak, recurrence, and abdominal sepsis as well as . She signed informed consent and was taken to procedure. DESCRIPTION OF PROCEDURE: Patient was brought to the operating room, placed in the supine position on the operating table with the right arm tucked. Bilateral lower extremities, SCDs applied. She received intravenous antibiotics prior to incision. She was induced to general anesthesia, endotracheally intubated, at which point we proceeded first with inspection of the umbilical area. There appeared to be a small hernia. The decision was made to use a Veress entry into the abdomen. The umbilical skin was elevated. A small marion incision was made, at which point a Veress needle was installed through the midline opening and pneumoperitoneum was established to 15 mmHg. We proceeded then to install a 10-mm port at the xiphisternum. The xiphisternum incision was scribed, a 15-blade was used to incise the skin and deep and widened with Bovie cautery to the anterior fascia, which was identified, and then under direct visualization with a 5-mm port installed at the umbilicus and a camera inspecting just adjacent to the falciform ligament, the 10-mm port was installed in the abdomen. There appeared to be a slightly distended gallbladder on exploration of the abdomen. Additional 5-mm trocars were installed into the right abdomen for retraction of the gallbladder. The gallbladder was retracted cranially at which point the omentum, which was adherent both to the liver and the gallbladder were cleared with gentle traction. The gallbladder itself was thin walled and distended. When grasping the infundibulum to identify the cystic duct, small entry was made into the gallbladder, leaking some small stones, and bile which was suctioned and removed from the abdomen. We proceeded then with identification of the cystic duct at its confluence with the gallbladder itself. It was cleared. Plane was developed posterior to it. 5-mm clips were used to first control the majority of the cystic duct, and one towards the specimen side, and then we transected with an Endoshear. The was identified prior to this transection, identifying the cystic artery, and a plane was developed as well to encompass it, and that was just posterior to the node of Calot, which was also identified. The cystic artery was then controlled with 5-mm clips as well and transected with the cystic duct. The gallbladder was then elevated from the hepatic plate. The gallbladder was retracted to allow for a hook to debride slowly the gallbladder from the hepatic plate. When it was done and completely removed, it was retrieved from the xiphoid port with an Endocatch bag 10 mm. Care was taken to retrieve the gallbladder itself and send it for pathologic diagnosis. The site was then irrigated to assure hemostasis at the hepatic plate and where the previous clips lay. The site was inspected, gallbladder, a small amount of a bile, and stones were suctioned from the abdomen in addition to the irrigation fluid. Approximately a liter and a half of irrigation fluid was used to irrigate the site. The patient was returned to a level position. The 5-mm ports were removed under direct visualization, and then the 11-mm port was removed from the sternum area, and the anterior fascia was closed with 0 Polysorb in a chopjo-wy-oxsom fashion, ablating the opening. The skin was cleaned and then the skin was closed using 4-0 Monocryl in interrupted fashion on the 5-mm ports, and a running subcuticular at the 11-mm port. The benzoin and Steri-Strips were applied across the wound and gauze sponges, and Tegaderm was used to cover the wounds. The patient was awoken from general anesthesia having tolerated procedure well, was stable throughout. Counts were correct before the closure of the abdomen. The patient was extubated in the operating room, returned to recovery in stable condition. MD ROSAURA Wong/[id number] MTDD
--- NOTE | 2017-08-25 13:41 | PATH ---
Surgical Pathology Report Patient Name: WEST LYNCH [facility]. Rec. #: [id number] /Age/Gender: 1980 (Age: 37) / F Account: [id number] Location: ASU Taken: 08/23/2017 Received: 08/24/2017 Reported: 08/25/2017 Physicians: Jorge Claudio M.D. Specimen(s) Received GALLBLADDER AND STONES Clinical History Cholelithiasis, early acute cholecystitis Final Diagnosis GALLBLADDER, LAPAROSCOPIC CHOLECYSTECTOMY: CHRONIC CHOLECYSTITIS AND CHOLELITHIASIS. Electronically Signed Gina Mckee M.D. Gross Description Received in formalin, labeled "gallbladder," is a 7.8 x 3.7 x 2.6 cm. gallbladder with a 0.2 cm. in length portion of cystic duct attached. The outer surface is montelongo ty and varies from smooth to shaggy. The lumen contains yellow, sludgelike bile as well as abundant yellow, irregular choleliths ranging from 0.1-0.7 cm in greatest dimension. The mucosa is montelongo-brown and focally eroded. The wall of the gallbladder averages 0.2 cm. in thickness. Front Maker Lockstitch sections are submitted in one cassette. 08/24/201708/24/2017
== END 2017-08-23 18:08 | disposition home or self-care (01) | DRG 263 ==
LOC: JER 07:28 → JERBED 10:34
PROC: 0FT44ZZ Resection of Gallbladder, Percutaneous Endoscopic Approach (ICD-10-PCS; principal; 2017-08-22)
DX: K80.00 Calculus of gallbladder with acute cholecystitis without obstruction (principal); D50.8 Other iron deficiency anemias; D72.829 Elevated white blood cell count, unspecified; R00.0 Tachycardia, unspecified; K82.8 Other specified diseases of gallbladder; E66.8 Other obesity; Z68.29 Body mass index [BMI] 29.0-29.9, adult; Z87.19 Personal history of other diseases of the digestive system
CPT/HCPCS: 36415; 76705-TC; 80053; 82550; 83690; 84484; 84703; 85025; 85027; 85610; 86850; 86900; 86901; 88304-TC; 93005; 93010; 94760; 99285-25

== ENCOUNTER 2022-02-04 08:35 | Inpatient (IN) | payer OTHER ==
[2022-02-04] MEDS ORDERED: OXYTOCIN 30 UNITS in 0.9% NS 30 UNIT/500 ML INFUS.BAG IVPB ONE (09:53)
[2022-02-04] MEDS ORDERED: LABETALOL HCL 200 MG TABLET (FP) ONE ×2 (10:21→21:33)
[2022-02-04] MEDS: LABETALOL HCL 200 MG TABLET (FP) PO SCH ×2 (10:25→21:37)
[2022-02-04] MEDS ORDERED: OXYTOCIN 30 UNITS in 0.9% NS 30 UNIT/500 ML INFUS.BAG IVPB SCH (10:30)
[2022-02-04] MEDS ORDERED: ELECTROLYTE-148 SOLN 1,000 ML IV SCH (10:30)
[2022-02-04 10:56] VITALS: BMI 32.8
[2022-02-04] MEDS ORDERED: FENTANYL/BUPIVACAINE/NS/PF - PCEA - 50 ML DISP.SYRIN EP ONE ×2 (15:39→20:27)
[2022-02-04] MEDS ORDERED: BUPIVACAINE HCL/PF 0.25% (2.5MG/ML) 10 ML VIAL ONE ×2 (15:40→21:16)
[2022-02-04] MEDS: FENTANYL/BUPIVACAINE/NS/PF - PCEA - 50 ML DISP.SYRIN EP SCH ×2 (16:10→20:30)
[2022-02-04] MEDS ORDERED: FENTANYL/BUPIVACAINE/NS/PF - PCEA - 50 ML DISP.SYRIN EP SCH (16:15)
[2022-02-04] MEDS ORDERED: NALOXONE HCL 0.4 MG/ML VIAL IVPUSH PRN ×2 (16:15)
[2022-02-04] MEDS ORDERED: OXYTOCIN 20 UNITS in 0.9% NS 20 UNIT/1,000 ML INFUS.BAG IV ONE (21:21)
[2022-02-04] MEDS ORDERED: LIDOCAINE HCL 1% PRESERVATIVE FREE - 30ML VIAL ONE (21:21)
[2022-02-04] MEDS ORDERED: BENZOCAINE 28 GM HEMORRHOIDAL OINTMENT TP PRN (22:12)
[2022-02-04] MEDS ORDERED: METHYLERGONOVINE MALEATE 0.2 MG/1 ML AMP IM PRN (22:12)
[2022-02-04] MEDS ORDERED: BENZOCAINE 20% 57 GM BOTTLE TP PRN (22:12)
[2022-02-04] MEDS ORDERED: BISACODYL 10 MG SUPP.RECT RC PRN (22:12)
[2022-02-04] MEDS ORDERED: WITCH HAZEL 50% (TUCKS) 40 PAD/JAR PAD TP PRN (22:12)
[2022-02-04] MEDS ORDERED: ACETAMINOPHEN 325 MG TABLET (FP) PO PRN (22:12)
[2022-02-04] MEDS ORDERED: OXYTOCIN 20 UNITS in 0.9% NS 20 UNIT/1,000 ML INFUS.BAG IV SCH (22:15)
[2022-02-05] MEDS ORDERED: IBUPROFEN 600 MG TABLET (FP) PO ONE
[2022-02-05] MEDS: IBUPROFEN 600 MG TABLET (FP) PO PRN ×2 (00:02→20:18)
[2022-02-05 07:23] LABS: BASO % 0.2 % (0-2.0); EOS % 0.1 % (0-4.5); HEMATOCRIT 26.2 % (32.4-45.2); HEMOGLOBIN 8.1 GM/dL (10.7-15.3); LYMPH % 10.4 % (8-40); MEAN PLT VOLUME 8.2 fl (7.5-11.1); MONO % 4.3 % (3.8-10.2); PLATELET COUNT 166 10^3/uL (134-434); RBC 4.36 M/mm3 (3.60-5.2); RDW 20.2 % (11.6-15.6); WHITE BLOOD COUNT 14.2 K/mm3 (4.0-10.0)
[2022-02-05 07:30] LABS: MCH 18.6 pg (25.7-33.7)
[2022-02-05] MEDS: FERROUS SO4 325 MG TABLET (FP) PO SCH ×2 (09:35→21:47)
[2022-02-05] MEDS: LABETALOL HCL 200 MG TABLET (FP) PO SCH ×2 (09:35→21:47)
[2022-02-05] MEDS: PRENATAL VITAMINS W/ FOLIC ACID TABLET (FP) PO SCH (09:35)
[2022-02-05] MEDS ORDERED: SENNOSIDES/DOCUSATE COMBO (SENNA PLUS) TABLET (UD) PO PRN (22:00)
[2022-02-06] MEDS: IBUPROFEN 600 MG TABLET (FP) PO PRN (06:08)
[2022-02-06] MEDS: FERROUS SO4 325 MG TABLET (FP) PO SCH (10:01)
[2022-02-06] MEDS: LABETALOL HCL 200 MG TABLET (FP) PO SCH (10:01)
[2022-02-06] MEDS: PRENATAL VITAMINS W/ FOLIC ACID TABLET (FP) PO SCH (10:01)
[2022-02-06 11:22] VITALS: BP 160/81; PULSE 79; RESP 18; TEMP 98.3
== END 2022-02-06 11:50 | disposition home or self-care (01) | DRG 560 ==
LOC: JLDR 08:35 → J3W 02-05 00:20
PROVIDERS: ADMIT Obstetrics & Gynecology; ATTEND Obstetrics & Gynecology
PROC: 10E0XZZ Delivery of Products of Conception, External Approach (ICD-10-PCS; principal; 2022-02-04)
DX: O11.4 Pre-existing hypertension with pre-eclampsia, complicating childbirth (principal); O99.013 Anemia complicating pregnancy, third trimester; D64.9 Anemia, unspecified; Z3A.37 37 weeks gestation of pregnancy; Z37.0 Single live birth
CPT/HCPCS: 36415; 59409; 80053; 85025; 85610; 86850; 86900; 86901; C9803-CS; U0003; U0005